=== PATIENT | male | born 1965 | race African-American/Black ===

== ENCOUNTER 2019-05-12 12:08 | Emergency (ER) | payer MEDICAID ==
[~2019-05-12] VITALS: Ht 185.4 cm; Wt 86.5 kg
[2019-05-12] MEDS ORDERED: IBUPROFEN 600MG TABLET PO ONE (13:15)
[2019-05-12 15:00] VITALS: BP 132/82
== END 2019-05-12 15:09 | disposition home or self-care (01) ==
LOC: ER 12:08
DX: R22.43 Localized swelling, mass and lump, lower limb, bilateral (principal); F12.10 Cannabis abuse, uncomplicated; F17.210 Nicotine dependence, cigarettes, uncomplicated
CPT/HCPCS: 73610; 73630; 99283